=== PATIENT | male | born 1970 | race Native Hawaiian/Other Pacific Islander ===

== ENCOUNTER 2016-04-27 11:01 | Outpatient (CLI) | payer BC | END 2016-04-27 20:29 | disposition home or self-care (01) | LOC: RAD 11:01 | DX: M79.645 Pain in left finger(s) (principal) ==

== ENCOUNTER 2016-12-06 11:56 | Outpatient (CLI) | payer BC | END 2016-12-06 13:00 | disposition home or self-care (01) | LOC: RAD 11:56 | DX: M54.12 Radiculopathy, cervical region (principal) ==